=== PATIENT | female | born 2000 ===

== ENCOUNTER → 2025-03-19 | Outpatient (CLI) | payer OTHER ==
[2025-03-19 15:59] LABS: Neisseria Gonorrhoea Urine NOT DETECTED (NOT DETECT)
[2025-03-19 16:02] LABS: Chlamydia Trachomatis Urine DETECTED (NOT DETECT)
== END ==
LOC: LAB SHORT 11:43 → LAB 11:43
PROVIDERS: Family Medicine
DX: Z20.2 Contact with and (suspected) exposure to infections with a predominantly sexual mode of transmission (principal)
CPT/HCPCS: 87491; 87591